=== PATIENT | female | born 1955 | race Caucasian/White ===

== ENCOUNTER → 2017-04-14 | Outpatient (CLI) | payer OTHER ==
[~2017-04-14] VITALS: Ht 165.1 cm; Wt 84.5 kg
[~2017-04-14] MED LIST: ASPI1TAB57 PO; CHLORHEXIDINE GLUCONATE 2 % 1 PACK (2 CLOTHS) TOPICAL PRN; DEXTROSE 5% IN WATE 1000ML INJ 1,000 ML IV SCH; INSULIN HUMAN REGULAR 1,000 UNITS/10 ML VIAL SQ PRN; LACTATED RINGER'S 1000 ML IV PRN; METOPROLOL TARTRATE 25 MG TAB PO PRN; POVIDONE IODINE 5% (ANTISEPSIS KIT) 4 APPLICATIONS EACH NARE PRN; PROPOFOL 200 MG/20 ML AMP IV ONE; SODIUM CHLORID 0.9% 500 ML IV PRN
--- NOTE | 2017-04-14 10:42 | PD.HP.UP ---
H&P Update Note The Pre-Admit History and Physical Examination regarding the above named patient was reviewed (including, but not limited to, vital signs, heart, lungs, co-morbid conditions), and upon re-examination it is noted that: the patient's condition has not significantly changed since the last examination. Lai Young MD Apr 14, 2017 10:42
[2017-04-14 12:26] VITALS: BP 112/48; PULSE 70; RESP 18; TEMP 97.2; O2SAT 100
--- NOTE | 2017-04-14 18:18 | EKG ---
Date Performed: 04/14/2017 Time Performed: 10:24:00 PTAGE: 61 years EKG: SINUS BRADYCARDIA BORDERLINE ECG NO PREVIOUS TRACING DOCTOR: Bridget Lemons Interpretating Date/Time 04/14/2017 18:17:11
--- NOTE | 2017-04-16 17:41 | MR ---
cc: MCKAYLA FERNANDEZ ANDREW H. M.D. DATE: April 14, 2017 PREOPERATIVE DIAGNOSIS Colon cancer screening. PROCEDURE Colonoscopy to cecum. POSTOPERATIVE DIAGNOSIS Normal cecum, ileocecal valve. Diverticulosis rectosigmoid left colon. Internal-external hemorrhoids SURGEON Dr. Young PROCEDURE The patient was placed in the left lateral decubitus position. After adequate anesthesia sedation rectal exam confirmed the emptiness the rectal vault. Olympus colonoscope was introduced into the rectum, advanced easily under direct vision through the proximal colon until the cecum was identified ileocecal valve was normal. There are no vascular maladies noted in the cecum. Colonoscope was then gradually withdrawn visualizing mucosal surface throughout the distal colon. No mucosal polyps were seen. Some diverticulosis was seen in the rectosigmoid. No sign of any acute inflammation. The lumen size was adequate distal rectosigmoid was pretty unremarkable. The patient tolerated the procedure quite well and was brought to recovery room in stable condition. Sponge and needle counts were correct at the end of the procedure. MD JESSICA Jung/emigdio /8:10 AM /5:30 PM
== END ==
LOC: HSDC 09:55
PROVIDERS: ATTEND Colon & Rectal Surgery
DX: Z12.11 Encounter for screening for malignant neoplasm of colon (principal); K57.30 Diverticulosis of large intestine without perforation or abscess without bleeding; K64.4 Residual hemorrhoidal skin tags; K64.8 Other hemorrhoids; Z01.810 Encounter for preprocedural cardiovascular examination
CPT/HCPCS: 00810; 45378; 93005; J7120